=== PATIENT | female | born 1995 | race Caucasian/White ===

== ENCOUNTER → 2020-10-31 | Outpatient (CLI) | payer OTHER ==
--- NOTE | 2020-10-31 10:32 | REP ---
INDICATION: ANATOMY. COMPARISON: None. TECHNIQUE: Transabdominal obstetric sonography. FINDINGS: Scanning through the gravid uterus demonstrates a viable single intrauterine gestation in cephalic lie. motion is observed and heart rate is recorded at 150 beats per minute. A anterior placenta is seen, grade 1, without evidence of placenta previa. Amniotic fluid is subjectively normal. Closed cervical length is measured at 3.9 cm transabdominally. No extrauterine abnormality is observed. Four-chamber heart and left and right ventricular outflow tract views are less than optimally seen due to position today. The following additional anatomic structures are identified and felt to be unremarkable: cranium, cerebellum and posterior fossa, the nuchal fold face and profile, nose and lips, diaphragm, left-sided stomach, abdominal wall cord insertion, right and left kidney, urinary bladder, spine, upper and lower extremities, three-vessel cord. There are small bilateral choroid plexus cysts. Biometry chart: BPD 4.3 cm, 19 weeks 0 days Head circumference 16.0 cm, 18 weeks 6 days Abdominal circumference 13.6 cm, 19 weeks 1 day Femur length 2.9 cm, 18 weeks 6 days Humeral length 2.8 cm, 19 weeks 0 days HC AC ratio normal 1.17 Cephalic index normal 0.75 Estimated weight 267 g, 0 lb 9 oz, 22nd percentile for 19 weeks 3 days. IMPRESSION: Viable single intrauterine gestation at 19 weeks 0 days by today's composite sonographic criteria. DEEP by today's sonography 27 March 2021. No complication identified. anatomic survey incomplete regarding heart. Small bilateral choroid plexus cysts. <Electronically signed by David Ferreira > 10/31/20 [id number]
== END ==
LOC: M WHC 09:07
PROVIDERS: ATTEND Advanced Practice Midwife
DX: Z34.02 Encounter for supervision of normal first pregnancy, second trimester (principal); Z3A.19 19 weeks gestation of pregnancy

== ENCOUNTER → 2020-11-20 | Outpatient (CLI) | payer OTHER ==
--- NOTE | 2020-11-20 19:05 | REP ---
INDICATION: F/U ANATOMY COMPARISON: 10/31/2020 TECHNIQUE: Transabdominal obstetrical ultrasound with color Doppler evaluation. FINDINGS: Examination demonstrates a single live intrauterine in breech presentation. motion is identified by technologist. Placenta is noted anterior and grade 0 without evidence for placenta previa or abruption. Amniotic fluid volume is normal. Cervix measures 4.4 cm in length and appears closed.. Gestational age by LMP 22 weeks 2 days with DEEP 03/24/2021. Gestational age by current measurements 21 weeks 4 days with DEEP 03/29/2021. FHR equals 146 beats per minute. Estimated weight 439 grams (17thpercentile). Anatomical assessment is limited by motion and positioning. Images of the heart and ventricular outflow tracts are again limited. Previously noted choroid plexus cysts have resolved. IMPRESSION: Single live intrauterine in breech presentation demonstrating appropriate estimated weight. Continued limited evaluation of the heart/ventricular outflow tracts due to positioning. <Electronically signed by Pool Nguyen > 11/20/20 [id number]
== END ==
LOC: M WHC 11:01
PROVIDERS: ATTEND Advanced Practice Midwife
DX: Z34.02 Encounter for supervision of normal first pregnancy, second trimester (principal); Z3A.22 22 weeks gestation of pregnancy

== ENCOUNTER → 2020-12-19 | Outpatient (REF) | payer OTHER ==
[2020-12-19 14:03] LABS: HEMATOCRIT 38.2 % (36.0-47.0); HEMOGLOBIN 12.6 g/dl (12.0-15.5); MEAN CORPUSCULAR HEMOGLOBIN 31.2 pg (27.0-33.0); MEAN CORPUSCULAR VOLUME 94.6 fl (80.0-96.0); PLATELET COUNT, AUTOMATED 225 10^3/uL (150-450); RED BLOOD COUNT 4.04 10^6/uL (4.00-5.40); WHITE BLOOD COUNT 13.2 10^3/uL (4.0-10.0)
== END ==
LOC: M PLALAB 08:53
PROVIDERS: ATTEND Advanced Practice Midwife
DX: Z36.89 Encounter for other specified antenatal screening (principal); Z3A.24 24 weeks gestation of pregnancy

== ENCOUNTER → 2020-12-19 | Outpatient (CLI) | payer OTHER ==
--- NOTE | 2020-12-19 09:31 | REP ---
INDICATION: F/U ANATOMY. DEEP March 24, 2021. COMPARISON: Comparison sonography is from November 20, 2020.. TECHNIQUE: Transabdominal obstetric sonography FINDINGS: Scanning through the gravid uterus demonstrates a viable single intrauterine gestation in cephalic lie. motion is observed and heart rate is recorded at 152 beats per minute. A anterior placenta is seen, grade 1, without evidence of placenta previa. Closed cervical length is measured at 3.8 cm transabdominally. No extrauterine abnormality is observed. Amniotic fluid is subjectively normal. Four-chamber heart view is less than optimally achieved again today due to position. Left and right ventricular outflow tract views are obtained in felt to be normal. The following additional anatomic structures are again identified felt to be unremarkable: cranium, face and profile nose and lips, left-sided stomach, abdominal wall cord insertion, right and left kidney, urinary bladder, spine, three-vessel cord.. Biometry chart: BPD 6.3 cm, 25 weeks 4 days Head circumference 23.9 cm, 26 weeks 0 days Abdominal circumference 20.9 cm, 25 weeks 3 days Femur length 4.8 cm, 26 weeks 0 days Humeral length 4.4 cm, 26 weeks 3 days HC AC ratio normal 1.14 Cephalic index normal 0.72 Estimated weight 843 g, 1 lb 13 oz, 15th percentile for 26 weeks 3 days IMPRESSION: Viable single intrauterine gestation at 25 weeks 6 days by today's composite sonographic criteria. DEEP by today's sonography 28 March 2021. No complication identified. Expected gestational age estimate based on DEEP of March 24, 2021 is 26 weeks 3 days. Four-chamber heart view still less than optimally achieved. <Electronically signed by David Ferreira > 12/19/20 [id number]
== END ==
LOC: M WHC 07:16
PROVIDERS: ATTEND Advanced Practice Midwife
DX: Z3A.24 24 weeks gestation of pregnancy (principal)

== ENCOUNTER → 2021-01-22 | Outpatient (CLI) | payer OTHER ==
--- NOTE | 2021-01-22 14:51 | REP ---
INDICATION: F/U ANATOMY/GROWTH COMPARISON: 12/19/2020 TECHNIQUE: Transabdominal obstetrical ultrasound with color Doppler evaluation. FINDINGS: Examination demonstrates a single live intrauterine in cephalic presentation. motion is identified by technologist. Placenta is noted anterior and grade 1 without evidence for placenta previa or abruption. Amniotic fluid volume is normal. Cervix measures 3.4 cm in length and appears closed.. Gestational age by LMP and 1st U/S 31 weeks 2 days with DEEP 03/24/2021. Gestational age by current measurements 30 weeks 5 days with DEEP 03/28/2021. FHR equals 147 beats per minute. BPD: 7.6 cm at 30 weeks 4 days HC: 28.0 cm at 30 weeks 5 days AC: 27.0 cm at 31 weeks 0 days FL: 5.9 cm at 30 weeks 5 days HL: 5.2 cm at 30 weeks 3 days HC/AC: 1.04 Estimated weight 1655 grams (26thpercentile). FLEX: 17.6 cm (8.7-23.9) Umbilical cord SD ratio: 3.55 (1.88-3.95) Anatomical assessment demonstrates normal cranium, cerebral ventricles, choroid plexus, cerebellum, facial profile, nose/lips, orbits, diaphragm, stomach, kidneys, bladder and spine. IMPRESSION: 1. Single live intrauterine in cephalic presentation demonstrating appropriate estimated weight and growth. 2. Amniotic fluid volume is normal. 3. Limited evaluation of the four-chamber heart. In conjunction with prior examination, remainder of the anatomical assessment is complete and normal. <Electronically signed by Pool Nguyen > 01/22/21 0369
== END ==
LOC: M WHC 13:01
PROVIDERS: ATTEND Advanced Practice Midwife
DX: Z36.2 Encounter for other antenatal screening follow-up (principal); Z3A.31 31 weeks gestation of pregnancy

== ENCOUNTER → 2021-02-26 | Outpatient (REF) | payer OTHER | LOC: M SFHCWAGY 15:07 | PROVIDERS: ATTEND Obstetrics & Gynecology | DX: Z36.85 Encounter for antenatal screening for Streptococcus B (principal); Z3A.36 36 weeks gestation of pregnancy | CPT/HCPCS: 87081; G0463 ==

== ENCOUNTER → 2021-03-17 | Outpatient (CLI) | payer OTHER | LOC: M LABSMTC 09:34 | PROVIDERS: ATTEND Specialist | DX: Z01.812 Encounter for preprocedural laboratory examination (principal); Z20.822 Contact with and (suspected) exposure to COVID-19 ==

== ENCOUNTER → 2021-03-24 | Outpatient (CLI) | payer OTHER | LOC: M LABSMTC 09:30 | PROVIDERS: ATTEND Specialist | DX: Z20.822 Contact with and (suspected) exposure to COVID-19 (principal) ==

== ENCOUNTER → 2021-04-01 | Outpatient (CLI) | payer OTHER | LOC: M LABSMTC 09:52 | PROVIDERS: ATTEND Specialist | DX: Z01.812 Encounter for preprocedural laboratory examination (principal); Z20.822 Contact with and (suspected) exposure to COVID-19 ==

== ENCOUNTER 2021-04-03 09:00 | Inpatient (IN) | payer OTHER ==
[~2021-04-03] VITALS: Ht 162.6 cm; Wt 74.2 kg
[2021-04-03] VITALS (12 sets, daily range): BP systolic 113–133; BP diastolic 55–81
[2021-04-03] MEDS ORDERED: LACTATED RINGER'S 1000 ML IV STA (09:39)
[2021-04-03] MEDS ORDERED: LIDOCAINE 1% MDV 20ML VIAL INFIL PRN (09:40)
[2021-04-03] MEDS ORDERED: METHYLERGONOVINE MALEATE 0.2 MG/ML VIAL (J2210) IM PRN (09:40)
[2021-04-03] MEDS ORDERED: OXYTOCIN DRIP 30 UNITS in IV 1 EA IV PRN (09:40)
[2021-04-03 10:06] LABS: HEMATOCRIT 39.3 % (36.0-47.0); HEMOGLOBIN 13.6 g/dl (12.0-15.5); MEAN CORPUSCULAR HEMOGLOBIN 31.3 pg (27.0-33.0); MEAN CORPUSCULAR HGB CONC 34.6 g/dl (32.0-36.5); MEAN CORPUSCULAR VOLUME 90.3 fl (80.0-96.0); PLATELET COUNT, AUTOMATED 190 10^3/uL (150-450); RED BLOOD COUNT 4.35 10^6/uL (4.00-5.40); WHITE BLOOD COUNT 12.9 10^3/uL (4.0-10.0)
--- NOTE | 2021-04-03 10:06 | HPEPDOC ---
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 BREAST: . ABDOMEN: Gravid and non-tender to touch. FETUS: Is vertex (VTX) by sterile vaginal examination (SVE), fetus is vertex ( VTX) by Mendez. EFW 8# HEART RATE: Regular rate and rhythm. LUNGS: Clear to auscultation (CTA). EXTREMITIES: No edema. No clonus. Deep tendon reflexes (DTRs) + 2. Vital Signs/I&O Vital Signs Date Time Temp Pulse Resp B/P (MAP) Pulse Ox O2 Delivery O2 Flow Rate FiO2 04/03/21 09:12 97.7 65 18 122/80 (94) Pertinent Laboratoy Data Blood Type: B+ RBC Antibody Screen: Negative HIV: Negative Hepatitis B: Negative Rapid Plasma Reagin: Nonreactive Rubella: Immune Chlamydia/Gonorrhea: Negative Group B Streptococcus: Negative Anatomy Ultrasound Ultrasound Date: Oct 31, 2020 Placenta Location: Anterior Normal Anatomy: Yes Placenta Previa: No Estimated Weight (grams): 267 (22%) Other Ultrasounds 08/23/2021 dating 8w5d 11/20/2020 f/u anatomy Breech, no previa. EGA 21w4d 439gm 17%, limited views of heart 12/19/2020 f/u anatomy cephalic EGA 26w3d 843gm 15% suboptimal views heart 01/22/2021 f/u anatomy cephalic EGA 30w5d 1655gm 26% suboptimal views heart Steroid Therapy Steroid Therapy: No Vaginal Examination Dilation: 7 cm Effacement: 90% Cervical Consistency: Soft Cervical Position: Middle Presentation: Cephalic presentation Assessment Heart Rate (FHR): 135 Variability: Moderate Accelerations: Positive Decelerations: None Tocometer Contractions: Yes Frequency: regular, every 2-5 min. Duration: greater than 60 seconds Strength: palpated as strong Assessment/Plan Assessment Angela is a 26-year-old (G)1 para (P)0 at 41+3 weeks by 8-week ultrasound. Presents to Labor and Delivery (L&D) with contractions. Reports onset UC 0500. Denies LOF, bleeding. Reports good activity. . 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 Diet: as tolerated. Group B Streptococcus (GBS) negative. Labs and intravenous (IV) per unit protocol. Counseled on Pitocin and induction of labor (IOL). Lactated Ringers (LR): Bolus 500 mL, then saline lock. Plans to labor ad prosper Anticipate normal spontaneous delivery (). C-S as appropriate. Apple Collins CNM Apr 03, 2021 10:06
[2021-04-03] MEDS ORDERED: RHOGAM 300 MCG (1500 IU) INJ (J2790) IM SCH (14:05)
[2021-04-03] MEDS ORDERED: LIDOCAINE 1% MDV 20ML VIAL INFIL ONE (14:05)
[2021-04-03] MEDS ORDERED: MEASLES,MUMPS,RUBELLA VACCINE INJ (MMR-II) (90707) SC SCH (14:05)
[2021-04-03] MEDS ORDERED: OXYTOCIN DRIP 30 UNITS in IV 1 EA IV SCH (14:05)
[2021-04-03] MEDS ORDERED: IBUPROFEN 600MG TAB PO PRN (14:05)
[2021-04-03] MEDS ORDERED: IBUPROFEN 800 MG TAB PO PRN (14:05)
[2021-04-03] MEDS ORDERED: ACETAMINOPHEN TAB 650MG DOSE (2X325MG) PO PRN (14:05)
[2021-04-03] MEDS ORDERED: MOM 30ML SUSPENSION UDC PO PRN (14:05)
[2021-04-03] MEDS ORDERED: DOCUSATE SODIUM 100MG CAPSULE PO PRN (14:05)
[2021-04-03] MEDS ORDERED: ANUSOL HC CREAM 30GM TOP PRN (14:05)
[2021-04-03] MEDS ORDERED: ACETAMINOPHEN 500 MG TAB PO PRN (14:05)
[2021-04-03] MEDS ORDERED: METHYLERGONOVINE MALEATE 0.2 MG TAB PO PRN (14:05)
[2021-04-03] MEDS ORDERED: DIBUCAINE 1% OINTMENT 30GM TOP PRN (14:10)
--- NOTE | 2021-04-03 14:16 | DNPDOC ---
[facility] Delivery Note Delivery Note DATE OF DELIVERY: 04/03/2021 PREDELIVERY DIAGNOSIS: 41-3/7 weeks' gestation and labor. POST DELIVERY DIAGNOSIS: Delivered. PROCEDURE: Spontaneous vaginal delivery. PROVIDER: Apple Collins CNM ANESTHESIA: lidocaine for repair. ESTIMATED BLOOD LOSS: 200 mL. FINDINGS: 7 pound 4 ounce, 3280gm male infant, Score 9/9, no nuchal cord. DELIVERY SUMMARY: Patient is a 26-year-old 1 now para 1-0-0-1 who was admitted to labor and delivery for active labor. She progressed under her own santos and coped physiologically. SROM clear fluid 1105. Fully dilated 1112. Spontaneous bearing down efforts. Viable male delivered from all 4's position @ 1237 with ease. Spontaneous respirations, transitioned on maternal abdomen. Cord doubly clamped, cut by FOB under my direction after pulsations ceased. Apgars 9/9. Placenta andrea, intact with 3v cord @ 1243. Fundus firmed with massage and IV bolus of premixed pitocin infusion. EBL 200ml. Bilateral labial lacerations noted. Maternal right extended into perineum. Lacerations infiltrated with lidocaine and repaired in the usual fashion with 3-0 vicryl rapide. Sponge sharp and instrument count correct. Parents are naming their son Adan. Apple Collins CNM Apr 03, 2021 14:16
[2021-04-04 05:35] VITALS: BP 119/56
--- NOTE | 2021-04-04 07:08 | IPNPDOC ---
Text Note Date of Service The patient was seen on 04/04/21. NOTE PP #1 Feels well. Happy with experience. Adequate pain management. . Voiding VSS, afebrile, normotensive Breasts soft, nipples intact Fundus firm, NT, down 1 FB Lochia rubra light without odor Perineum well approximated, mild edema PP #1 Routine care. Anticipate D/C in am VS,Fishbone, I+O VS, Fishbone, I+O Laboratory Tests 04/03/21 09:51 Vital Signs Date Time Temp Pulse Resp B/P (MAP) Pulse Ox O2 Delivery O2 Flow Rate FiO2 04/04/21 05:35 97.9 65 16 119/56 (77) 04/03/21 18:00 99 Room Air I&O- Last 24 Hours up to 6 AM 04/04/21 06:00 Intake Total 1000 ml Output Total 200 ml Balance 800 ml Apple Collins CNM Apr 04, 2021 07:08
[2021-04-04] MEDS ORDERED: PRENATAL VITAMINS CHEWABLE TABLET PO SCH (09:00)
[2021-04-04] MEDS ORDERED: IBUP80TA PO (12:15)
[2021-04-04] MEDS ORDERED: ACET-683 PO (12:15)
== END 2021-04-04 18:45 | disposition home or self-care (01) | DRG 807 ==
LOC: M LDO 09:00 → M LDI 09:36 → M OBS 16:10
PROVIDERS: ADMIT Advanced Practice Midwife; ATTEND Advanced Practice Midwife
PROC: 10E0XZZ Delivery of Products of Conception, External Approach (ICD-10-PCS; principal; 2021-04-03)
PROC: 0HQ9XZZ Repair Perineum Skin, External Approach (ICD-10-PCS; 2021-04-03)
DX: O48.0 Post-term pregnancy (principal); Z37.0 Single live birth; Z3A.41 41 weeks gestation of pregnancy; O70.0 First degree perineal laceration during delivery

== ENCOUNTER → 2021-07-21 | Outpatient (REF) | payer OTHER ==
[~2021-07-21] MED LIST: ACET-683 PO; IBUP80TA PO
== END ==
LOC: M SFHCWAGY 13:25
PROVIDERS: ATTEND Advanced Practice Midwife
DX: Z12.4 Encounter for screening for malignant neoplasm of cervix (principal)
CPT/HCPCS: G0123; G0463

== ENCOUNTER → 2022-10-21 | Outpatient (CLI) | payer OTHER ==
[2022-10-21 16:02] LABS: HIV 1&2 SCREEN CENTAUR NEGATIVE (NEGATIVE)
[2022-10-21 16:11] LABS: HEMATOCRIT 40.8 % (36.0-47.0); HEMOGLOBIN 13.7 g/dl (12.0-15.5); MEAN CORPUSCULAR HEMOGLOBIN 30.9 pg (27.0-33.0); MEAN CORPUSCULAR HGB CONC 33.6 g/dl (32.0-36.5); MEAN CORPUSCULAR VOLUME 92.1 fl (80.0-96.0); PLATELET COUNT, AUTOMATED 244 10^3/uL (150-450); RED BLOOD COUNT 4.43 10^6/uL (4.00-5.40); WHITE BLOOD COUNT 10.7 10^3/uL (4.0-10.0)
[2022-10-21 16:50] LABS: GC DNA AMPLIFICATION NEGATIVE (NEGATIVE)
== END ==
LOC: M PLALAB 10:05
PROVIDERS: ATTEND Advanced Practice Midwife
DX: Z34.81 Encounter for supervision of other normal pregnancy, first trimester (principal)

== ENCOUNTER → 2022-12-24 | Outpatient (CLI) | payer OTHER | LOC: M WHC 08:41 | PROVIDERS: ATTEND Obstetrics & Gynecology | DX: Z34.92 Encounter for supervision of normal pregnancy, unspecified, second trimester (principal); Z3A.18 18 weeks gestation of pregnancy ==

== ENCOUNTER → 2023-01-26 | Outpatient (CLI) | payer OTHER ==
[2023-01-26 14:03] LABS: HEMATOCRIT 35.8 % (36.0-47.0); HEMOGLOBIN 11.8 g/dl (12.0-15.5); MEAN CORPUSCULAR HEMOGLOBIN 31.3 pg (27.0-33.0); PLATELET COUNT, AUTOMATED 200 10^3/uL (150-450); RED BLOOD COUNT 3.77 10^6/uL (4.00-5.40); WHITE BLOOD COUNT 12.7 10^3/uL (4.0-10.0)
== END ==
LOC: M PLALAB 09:10
PROVIDERS: ATTEND Obstetrics & Gynecology
DX: Z34.93 Encounter for supervision of normal pregnancy, unspecified, third trimester (principal)